=== PATIENT | male | born 1955 | race Two or more races ===

== ENCOUNTER 2019-08-03 18:03 | Inpatient (IN) | payer OTHER ==
[~2019-08-03] VITALS: Ht 167.6 cm; Wt 86.1 kg
[2019-08-03] MEDS ORDERED: LORazepam 2MG/ML-1ML VIAL ONE (18:13)
[2019-08-03] MEDS ORDERED: LORazepam 2MG/ML-1ML VIAL IV ONE (18:15)
[2019-08-03 18:34] LABS: Basophils # (auto) 0.2 uL; Basophils % (auto) 1.1 % (0.0-2.0); Eosinophils # (auto) 0.2 uL; Eosinophils % (auto) 1.1 % (0.0-7.0); Hematocrit 43.6 % (41.0-53.0); Hemoglobin 14.4 g/dL (13.5-17.5); Lymphocytes # (auto) 5.8 uL; Lymphocytes % (auto) 41.7 % (10.0-50.0); Mean Corpuscular Hemoglobin 30.5 pg (28.0-32.0); Mean Corpuscular Hgb Conc. 33.1 g/dL (32.0-36.0); Mean Corpuscular Volume 92.2 fL (80.0-100.0); Monocytes # (auto) 0.8 uL; Monocytes % (auto) 5.8 % (0.0-12.0); Neutrophils % (auto) 50.3 % (37.0-80.0); Platelet Count (auto) 353 10^3/uL (140-450); Red Blood Cells 4.73 10^6/uL (4.5-5.90); White Blood Cell 13.9 10^3/uL (4.4-10.8)
[2019-08-03 18:59] LABS: Anion Gap 11 (5-15); Blood Urea Nitrogen 11 mg/dL (7-18); Calcium 9.1 mg/dL (8.5-10.1); Carbon Dioxide 24 mmol/L (21-32); Chloride 106 mmol/L (98-107); Glucose 135 mg/dL (74-106); Magnesium 2.2 mg/dL (1.6-2.6); Potassium 3.4 mmol/L (3.5-5.1); Sodium 141 mmol/L (136-145)
[2019-08-03 19:01] LABS: Alanine Aminotransferase 18 U/L (16-61); Aspartate Aminotransferase 20 U/L (15-37); GFR African American 87 mL/min; GFR Non-African American 72 mL/min
[2019-08-03 19:06] LABS: Alkaline Phosphatase 61 U/L (45-117); Bilirubin, Total 1.3 mg/dL (0.2-1.0); Total Protein 7.9 g/dL (6.4-8.2)
[2019-08-03 19:07] LABS: INR 1.03 (0.9-1.15); Partial Thromboplastin Time 24.4 sec (23.64-32.05)
[2019-08-03 19:40] LABS: Urine WBC None Seen /hpf (0 - 3)
[2019-08-03 20:07] LABS: Barbiturate Scree,Urine NEGATIVE (NEGATIVE); Cannabinoid Screen, Urine POSITIVE (NEGATIVE); Cocaine Screen, Urine NEGATIVE (NEGATIVE); Opiate Scree,Urine NEGATIVE (NEGATIVE); Phencyclidine Screen, Urine NEGATIVE (NEGATIVE); Urine Bacteria NONE SEEN /hpf (None Seen); Urine Blood Negative /uL (Negative); Urine Hyaline Cast FEW /lpf (0 - 2); Urine Mucus FEW (None Seen); Urine Specific Gravity 1.013 (1.001-1.035)
[2019-08-03 20:15] LABS: Amphetamine Screen, Urine NEGATIVE (NEGATIVE); Benzodiazephine Screen, Urine NEGATIVE (NEGATIVE)
[2019-08-03] MEDS ORDERED: SODIUM CHLORIDE 0.9% 1,000 ML IV ONE (22:30)
[2019-08-03] MEDS ORDERED: THIAMINE HCL 100 MG TAB PO ONE (22:30)
[2019-08-03] MEDS ORDERED: ONDANSETRON HCL 4 MG/2 ML VIAL IV PRN (23:30)
[2019-08-03] MEDS ORDERED: ALUM & MAG HYDROX-SIMETH LIQ(MAALOX) 30 ML PO ONE (23:30)
[2019-08-03] MEDS ORDERED: MORPHINE SULF INJ 2 MG/ML SYRINGE 1ML IV PRN (23:30)
[2019-08-03] MEDS ORDERED: NITROGLYCERIN 0.4 MG SL TAB SL PRN (23:30)
[2019-08-03] MEDS ORDERED: LORazepam 2MG/ML-1ML VIAL IV PRN (23:45)
--- NOTE | 2019-08-04 01:20 | NUR ---
Keyon MENDEZ called from ER, SBAR was given. Patient is to be transferred to room 294 B shortly.
--- NOTE | 2019-08-04 02:02 | NUR ---
Telemetry admit from [facility] admitted to Telemetry unit after SBAR received. Patient oriented to KIM DIALLO, RN primary RN, unit, room, bed, and unit policies regarding patient care and visiting hours. Patient now on continuous telemetry monitoring, tele box # 72 and telemetry reading on arrival to unit is sinus tachycardia 102 bpm. Patient weighed by bedscale and encouraged to call if they need something. All questions and concerns addressed, patient verbalized understanding. Patient is A/O x4, on RA, skin is intact, he is ambulatory. POC discussed. Call light is within reach, side rails up x2, bed is in lowest position.
[2019-08-04] MEDS ORDERED: INFLUENZA QUAD 2019-2020 0.5ml SYRG IM ONE (02:30)
[2019-08-04] MEDS ORDERED: PNEUMOCOCCAL VACC POLYS 25 MCG/0.5 ML VIAL IM ONE (02:30)
--- NOTE | 2019-08-04 03:24 | NUR ---
Report given to Karyn MENDEZ Patient is resting in bed, no S/S of distress or pain. Call light is within reach.
--- NOTE | 2019-08-04 03:30 | NUR ---
Assumed care of patient from Chantel MENDEZ. No acute S/S of distress SOB or pain. Patient resting in bed. Bed in lowest locked position, side rails up x2, call light within reach. Will continue to monitor every hour and as needed.
[2019-08-04 05:00] VITALS: BP 144/76
[2019-08-04 06:02] LABS: Basophils # (auto) 0.1 uL; Basophils % (auto) 0.5 % (0.0-2.0); Eosinophils # (auto) 0 uL; Eosinophils % (auto) 0.2 % (0.0-7.0); Hematocrit 38.1 % (41.0-53.0); Hemoglobin 13.2 g/dL (13.5-17.5); Lymphocytes # (auto) 1.9 uL; Lymphocytes % (auto) 15.2 % (10.0-50.0); Mean Corpuscular Hemoglobin 31.8 pg (28.0-32.0); Mean Corpuscular Hgb Conc. 34.7 g/dL (32.0-36.0); Mean Corpuscular Volume 91.5 fL (80.0-100.0); Monocytes # (auto) 0.7 uL; Monocytes % (auto) 5.4 % (0.0-12.0); Neutrophils # (auto) 10.1 uL; Neutrophils % (auto) 78.7 % (37.0-80.0); Platelet Count (auto) 274 10^3/uL (140-450); Red Blood Cells 4.16 10^6/uL (4.5-5.90); Red Cell Distribution Width 13.3 % (11.8-14.3); White Blood Cell 12.8 10^3/uL (4.4-10.8)
[2019-08-04 06:10] LABS: INR 1.04 (0.9-1.15); Partial Thromboplastin Time 27.2 sec (23.64-32.05)
[2019-08-04 06:33] LABS: Potassium 3.6 mmol/L (3.5-5.1)
[2019-08-04 06:41] LABS: Albumin 3.3 g/dL (3.4-5.0); Bilirubin, Total 1.7 mg/dL (0.2-1.0); Phosphorus 2.8 mg/dL (2.5-4.90); Total Protein 6.5 g/dL (6.4-8.2)
--- NOTE | 2019-08-04 08:00 | NUR ---
Morning note Assumed care of patient. Patient awake in bed eating breakfast respirations even and unlabored. No s/s of distress or pain. Bed in lowest position breaks locked, side rails up x2, call light with in reach. Educated on POC and to call for assistance when needed. Will continue to monitor q1 hour and prn.
[2019-08-04 09:00] VITALS: BP 145/77
[2019-08-04] MEDS ORDERED: PANTOPRAZOLE 40 MG TAB PO SCH (10:00)
[2019-08-04] MEDS ORDERED: DOCUSATE SOD 100 MG CAP PO SCH (10:00)
[2019-08-04] MEDS ORDERED: ENOXAPARIN SOD 40 MG/0.4 ML SYRINGE SC SCH (10:00)
[2019-08-04] MEDS ORDERED: MULTIPLE VITAMIN TAB PO SCH (10:00)
[2019-08-04] MEDS ORDERED: FOLIC ACID 1 MG TAB PO SCH (10:00)
[2019-08-04] MEDS ORDERED: THIAMINE HCL 100 MG TAB PO SCH (10:00)
[2019-08-04 11:05] VITALS: BP 145/77
[2019-08-04 13:00] VITALS: BP 149/85
--- NOTE | 2019-08-04 13:42 | NUR ---
Discharge instructions given as ordered. Encourage to follow up with PMD as instructed. All questions and concerns addressed. Patient verbalized understanding. Medication reconciliation form completed and copy given to patient. No home medications held in Pharmacy and none returned to patient, and needed vaccines given. IV removed with catheter intact, pressure dressing applied. Telemetry unit returned to ICU. Patient refused assistance and wheel chair from staff and ambulated with steady gait to elevator with all personal belongings, accompanied by family members. No distress noted at time of departure.
== END 2019-08-04 13:42 | disposition home or self-care (01) | DRG 309 ==
LOC: EDBD 18:03 → ER 18:07 → TELE 18:08 → TELE-WESTW 08-04 02:00
PROVIDERS: ADMIT Hospitalist; ATTEND Hospitalist
DX: R00.0 Tachycardia, unspecified (principal); F10.230 Alcohol dependence with withdrawal, uncomplicated; F12.10 Cannabis abuse, uncomplicated; E66.9 Obesity, unspecified; E78.5 Hyperlipidemia, unspecified; E86.0 Dehydration; F41.9 Anxiety disorder, unspecified; I10 Essential (primary) hypertension; Z68.30 Body mass index [BMI] 30.0-30.9, adult; Z79.899 Other long term (current) drug therapy; Y90.9 Presence of alcohol in blood, level not specified
CPT/HCPCS: 36415; 70450; 71045; 80053; 80061; 80307; 80320; 81001; 82550; 83036; 83735; 84100; 84484; 85025; 85610; 85730; 93005; 94761; G0378

== ENCOUNTER 2019-10-23 13:12 | Emergency (ER) | payer OTHER ==
[~2019-10-23] VITALS: Ht 167.6 cm; Wt 87.5 kg
[2019-10-23 13:48] VITALS: BP 150/86
== END 2019-10-23 15:49 | disposition home or self-care (01) ==
LOC: ER 13:12
DX: J20.9 Acute bronchitis, unspecified (principal); J01.00 Acute maxillary sinusitis, unspecified; I10 Essential (primary) hypertension
CPT/HCPCS: 71046